=== PATIENT | female | born 1970 | race Caucasian/White ===

== ENCOUNTER → 2016-07-10 | Outpatient (CLI) | payer BC ==
[~2016-07-10] MED LIST: AMAN100C18 PO; AMLO-114 PO; INTE1KIT4 PO; LISI40TA PO; METO25TA56 PO; MODA1TAB PO
[2016-07-10 16:52] LABS: BASO % 0.3 %; BASO ABS # 0.02 K/uL (0-0.2); COMPLETE YES; EOS % 1.2 %; HEMATOCRIT 40.3 % (37-47); IG% 0.1 %; LYMPH ABS # 2.07 K/uL (1.2-3.4); MEAN CELL VOLUME 88.2 fL (80-100); MEAN CORPUSCULAR HEMOGLOBIN 29.1 pg (25-34); MONO % 6.6 %; NEUT % 60.8 %; PLATELET COUNT 203 K/uL (130-400); RED BLOOD COUNT 4.57 M/uL (4.2-5.4); WHITE BLOOD COUNT 6.67 K/uL (4.8-10.8)
[2016-07-10 17:10] LABS: ALT/SGPT 22 U/L (12-78); AST/SGOT 14 U/L (15-37); BLOOD UREA NITROGEN 14 mg/dl (7-18); CALCIUM 9.2 mg/dl (8.5-10.1); CARBON DIOXIDE 26 mmol/L (21-32); CHLORIDE 106 mmol/L (98-107); GLUCOSE 83 mg/dl (70-99); POTASSIUM 4.7 mmol/L (3.5-5.1); SODIUM 142 mmol/L (136-145)
[2016-07-10 17:21] LABS: ALB/GLOB RATIO 1.1 (0.9-2); ALKALINE PHOSPHATASE 74 U/L (45-117); CHOLESTEROL 185 mg/dl (0-200); HDL CHOLESTEROL 94 mg/dl; LDL CHOLESTEROL CALCULATED 68 mg/dl; TRIGLYCERIDES 113 mg/dl (0-150); VERY LOW DENSITY LIPOPROT CALC 23 mg/dl
== END | disposition home or self-care (01) ==
LOC: C.LABPBG 13:58
PROVIDERS: ATTEND Neuromusculoskeletal Medicine & OMM
DX: Z00.00 Encounter for general adult medical examination without abnormal findings (principal)

== ENCOUNTER → 2016-10-05 | Outpatient (CLI) | payer BC ==
[~2016-10-05] MED LIST changes: +GADAVIST IV PRN
--- NOTE | 2016-10-05 14:03 | DIAGNOSTIC IMAGING REPORT ---
BRAIN COMBO FOR MS HISTORY: Demyelinating disorder G35 Multiple sclerosis TECHNIQUE: Multiplanar multisequence MRI of the brain was performed both before and after the intravenous administration of contrast. COMPARISON STUDY: 11/17/2013 FINDINGS: Multiple foci of increased signal within the periventricular deep white matter. These have remained essentially unchanged in the prior exam. There is a new or interval small focus medially superior to the occipital horn left lateral ventricle. This shows no abnormal postcontrast enhancement. Ventricular system is midline. Diffusion-weighted images are negative for an acute ischemic event. Sella and parasellar regions are unremarkable. The linear blush of postcontrast enhancement over the left convexity is unchanged. This is considered to be a benign finding. IMPRESSION: 1. Small new focus of increased signal adjacent to the occipital horn left lateral ventricle. 2. Study otherwise is completely unchanged from the prior exam. 3. No evidence for abnormal postcontrast enhancement The above report was generated using voice recognition software. It may contain grammatical, syntax or spelling errors. Electronically signed by: Tariq Gould M.D. 10/05/2016 2:02 PM Dictated Date/Time: 10/05/2016 1:56 PM
--- NOTE | 2016-10-05 14:19 | DIAGNOSTIC IMAGING REPORT ---
CERVICAL SPINE COMBO CLINICAL HISTORY: 45 years-old Female presenting with follow-up multiple sclerosis, diagnosed 5 years ago, no current symptoms. TECHNIQUE: Multisequence, multiplanar MR imaging of the cervical spine was performed before and after the administration of intravenous contrast. IV contrast: 7.5 mL of Gadavist. COMPARISON: 05/04/2014. FINDINGS: Slight reversal of normal cervical lordosis centered at C4-5. Vertebral bodies maintain normal height and bone marrow signal intensity. Intervertebral disc height loss at C5-6, with the remainder of the discs essentially preserved. Disc osteophyte complex is noted at C4-5 and C5-6. In combination with uncovertebral hypertrophy, there is resultant mild bilateral neural foraminal narrowing at C4-5 and moderate bilateral at C5-6. Abutment and mild contouring of the ventral spinal cord at these levels most significantly at C4-5 with preservation of posterior CSF. No convincing evidence of spinal cord impingement. Multifocal abnormal spinal cord signal intensity ventrally in the midline at C2 is unchanged from prior. However, interval development of abnormal spinal cord signal intensity ventrally at C3-4 and on the right posterior lateral aspect at C5-6. No convincing evidence of abnormal enhancement on postcontrast imaging. Previously noted abnormal signal intensity within the left middle cerebellar peduncle is not as well visualized on the current exam. Paraspinal soft tissues normal. IMPRESSION: 1. Persistent abnormal signal intensity at C2 within the spinal cord white matter consistent with demyelination. Interval development of 2 additional foci of disease at C3-4 and C5-6, however, no convincing evidence of enhancement to suggest active disease. 2. Degenerative changes at C4-5 and C5-6 with varying degrees of neural foraminal narrowing as above. 3. Persistent reversal of normal lordotic curvature. Electronically signed by: Giovany Shea M.D. 10/05/2016 2:18 PM Dictated Date/Time: 10/05/2016 1:59 PM
== END | disposition home or self-care (01) ==
LOC: C.MRIBC 12:13
PROVIDERS: ATTEND Psychiatry & Neurology Neurology
DX: G35 Multiple sclerosis (principal)

== ENCOUNTER → 2017-10-01 | Outpatient (CLI) | payer BC ==
[~2017-10-01] MED LIST changes: -AMLO-114 PO; +AMLO10TA3 PO; -GADAVIST IV PRN
--- NOTE | 2017-10-01 14:12 | DIAGNOSTIC IMAGING REPORT ---
BRAIN COMBO FOR MS HISTORY: Demyelinating disorder G35 Multiple [id number] TECHNIQUE: Multiplanar multisequence MRI of the brain was performed both before and after the intravenous administration of contrast. COMPARISON STUDY: 10/05/2016 FINDINGS: Diffusion-weighted images show no evidence for an acute ischemic event. Coronal FLAIR images demonstrate multiple foci of increased signal within the periventricular deep white matter regions. These appear unchanged. Postcontrast images, however show evidence for patchy enhancement at several foci within the left parietal and periventricular region as well as in the right paraventricular region. There is also a solitary focus of postcontrast enhancement left optic radiations. There are no significant brainstem foci of enhancement. IMPRESSION: 1. Unchanged exam in reference to the plaque formation throughout both cerebral hemispheres. 2. Postcontrast images, however show multifocal areas of punctate enhancement suggesting active plaques. The above report was generated using voice recognition software. It may contain grammatical, syntax or spelling errors. Electronically signed by: Tariq Gould M.D. 10/01/2017 2:10 PM Dictated Date/Time: 10/01/2017 1:48 PM
--- NOTE | 2017-10-01 14:28 | DIAGNOSTIC IMAGING REPORT ---
MRI OF THE CERVICAL SPINE COMBO CLINICAL HISTORY: Multiple sclerosis. COMPARISON STUDY: MRI of the cervical spine dated 10/05/2016. TECHNIQUE: MRI of the cervical spine is performed utilizing various T1 and T2-weighted sequences in the axial and sagittal planes. Contrast-enhanced sequences are acquired following the IV administration of 8 cc of Gadavist. FINDINGS: Cervical spine: Vertebral body height is maintained throughout the cervical spine. There is minimal retrolisthesis at C5-C6. Alignment is otherwise preserved. There is straightening of the cervical lordosis with reversal centered at C4-C5. The atlantodental articulation appears maintained. The spinous processes appear intact. Anterior osteophytes are noted in the mid and lower cervical region. Mild chronic degenerative endplate change is seen at C4-C5 and C5-C6. No destructive bony process is identified. Intervertebral discs: There is degenerative disc desiccation seen throughout the cervical spine. Mild to moderate loss of height is noted at C4-C5 and C5-C6. Spinal cord: The cervical spinal cord is normal in morphology and thickness. There are multiple foci of T2 hyperintense signal abnormalities present in the cervical cord. These are consistent with the reported clinical history of multiple sclerosis. No abnormal enhancement is identified on the postcontrast sequences. A lesion at the level of C2 measures up to 7 mm in length, and a lesion at C3-C4 measures up to 13 mm in length. A tiny lesion is also seen at the C5-C6 level. C2-C3: Facet arthropathy is of no consequence. The central canal and neural foramina are patent. C3-C4: Mild facet arthropathy is of no consequence. The central canal and neural foramina are patent. C4-C5: A posterior disc osteophyte complex effaces the ventral cord. Uncovertebral and facet arthropathy cause mild bilateral neural foraminal stenosis. C5-C6: A posterior disc osteophyte complex eccentric to the left abuts the ventral cord. Uncovertebral and facet arthropathy cause moderate to severe left and mild right neural foraminal stenosis. C6-C7: Unremarkable. C7-T1: Unremarkable. Soft tissues: The prevertebral and paraspinous soft tissues are normal as visualized. Brain parenchyma: The partially visualized brain parenchyma at the skull base is within normal limits. The cerebellar tonsils are normal in configuration. IMPRESSION: 1. There are several foci of T2 signal abnormality identified in the cervical cord, consistent with the reported clinical history of multiple sclerosis. These are similar in appearance to the 10/05/2016 examination, and no abnormal postcontrast enhancement is identified. 2. Multilevel cervical spondylosis as detailed above. See discussion for level by level analysis. Dictated: 10/01/2017 1:54 PM Transcribed: 10/01/2017 2:28 PM [email or web address]_[email or web address] Electronically signed by: Flo Banks M.D. 10/01/2017 4:00 PM Dictated Date/Time: 10/01/2017 1:54 PM
== END | disposition home or self-care (01) ==
LOC: C.MRIBC 12:16
PROVIDERS: ATTEND Psychiatry & Neurology Neurology
DX: G35 Multiple sclerosis (principal)